=== PATIENT | female | born 1985 | race Caucasian/White ===

== ENCOUNTER 2023-01-17 13:36 | Emergency (ER) | payer SELFPAY ==
[~2023-01-17] VITALS: Ht 162.6 cm; Wt 81.6 kg
[2023-01-17 13:55] VITALS: BP 96/54; PULSE 86; RESP 18; TEMP 97; O2SAT 98
[2023-01-17] MEDS: NACL 0.9% 1,000 ML IV SCH ×2 (14:16→17:18)
[2023-01-17 14:17] VITALS: BP 96/54; RESP 18; TEMP 97
[2023-01-17] MEDS ORDERED: NACL 0.9% 1,000 ML IV ONE (14:20)
[2023-01-17 14:29] LABS: BASOPHILS % (AUTO) 0.4 % (0.0-2.0); EOSINOPHILS # (AUTO) 0.2 K/uL (0-0.4); EOSINOPHILS % (AUTO) 1.9 % (0.0-4.0); HEMATOCRIT 38.6 % (36-48); LYMPHOCYTES # (AUTO) 2.3 K/uL (2.5-16.5); LYMPHOCYTES % (AUTO) 27.7 % (20.5-51.1); MEAN CORPUSCULAR HEMOGLOBIN 29 pg (27-31); MEAN CORPUSCULAR HGB CONC 34 g/dL (33-37); MEAN CORPUSCULAR VOLUME 86.9 fL (80-94); MONOCYTES # (AUTO) 0.4 K/uL (0.8-1.0); MONOCYTES % (AUTO) 5.2 % (1.7-9.3); NEUTROPHILS # (AUTO) 5.5 K/uL (1.8-7.7); NEUTROPHILS % (AUTO) 64.8 % (42.2-75.2); PLATELET COUNT (AUTO) 222 K/uL (140-450); RED BLOOD CELL COUNT(AUTO) 4.44 MIL/uL (4.20-5.40); RED CELL DISTRIBUTION WIDTH 14.4 % (11.6-13.7); WHITE BLOOD COUNT (AUTO) 8.4 K/uL (4.8-10.8)
[2023-01-17 14:59] LABS: ALANINE AMINOTRANSFERASE 17 U/L (12-78); ALBUMIN 3.2 g/dL (3.4-5.0); ALKALINE PHOSPHATASE 72 U/L (50-136); ANION GAP 16.4 (8-16); ASPARTATE AMINOTRANSFERASE 7 U/L (15-37); CALCIUM 8.1 mg/dL (8.5-10.1); CARBON DIOXIDE 21.7 mmol/L (21-32); CHLORIDE 105 mmol/L (98-107); CREATINE KINASE, TOTAL 71 U/L (26-192); CREATININE 0.7 mg/dL (0.6-1.3); GFR ARICAN-AMERICAN 119 mL/min (>90); GFR NON ARICAN-AMERICAN 99 mL/min (>90); GLUCOSE 97 mg/dL (74-106); LIPASE 27 U/L (16-77); POTASSIUM 3.1 mmol/L (3.5-5.1); SODIUM SERUM 140 mmol/L (136-145); TOTAL BILIRUBIN 0.3 mg/dL (0.0-1.0); TOTAL PROTEIN, SERUM 6.8 g/dL (6.4-8.2); UREA NITROGEN, BLOOD 16 mg/dL (7-18)
[2023-01-17 15:04] LABS: SALICYLATE < 2.8 mg/dL (2.8-20.0)
[2023-01-17 15:05] LABS: ACETAMINOPHEN < 0.5 ug/ml (10-30)
[2023-01-17 15:06] LABS: LACTIC ACID 3.2 mmol/L (0.4-2.0)
[2023-01-17 15:48] VITALS: O2SAT 98
[2023-01-17] MEDS ORDERED: KCL 20 MEQ IN 100 mL PREMIX 200 ML IV ONE (15:50)
[2023-01-17 15:53] VITALS: PULSE 64
[2023-01-17 17:21] LABS: ALCOHOL, BLOOD 329 mg/dL (<10)
== END 2023-01-17 18:07 | disposition left against medical advice (07) ==
LOC: MED 13:36
DX: F10.129 Alcohol abuse with intoxication, unspecified (principal); R41.0 Disorientation, unspecified; E87.6 Hypokalemia; E86.0 Dehydration; Y90.8 Blood alcohol level of 240 mg/100 ml or more
CPT/HCPCS: 36415; 80053; 82550; 83605; 83690; 85025; 96361; 96365; 99284; G0480; G0482; J3480; 99283